=== PATIENT | female | born 1995 | race Caucasian/White ===

== ENCOUNTER 2018-01-31 00:21 | Observation (INO) ==
[2018-01-31] MEDS ORDERED: ASPIRIN 325 MG TABLET PO STA (00:47)
[2018-01-31] MEDS ORDERED: METOPROLOL TARTRATE 25 MG TABLET PO STA (00:47)
[2018-01-31] MEDS ORDERED: SODIUM CHLORIDE 0.9% 500 ML IV STA (00:47)
[2018-01-31 01:19] LABS: Basophils % 0.3 % (0.0-0.8); Eosinophils # 0.1 10*3/uL (0.0-0.87); Hematocrit 36.6 VOL% (35.7-47.0); Hemoglobin 12.4 GM/DL (12.0-16.0); Immature Granulocytes % 0.3 %; Immature Granulocytes Absolute 0.03 #; Lymphocytes % 33.7 % (21.3-54.2); Mean Corpuscular HGB Conc 33.9 GM/DL (32-36); Mean Corpuscular Hemoglobin 30 PG (27-34); Mean Corpuscular Volume 88.6 FL (87-102); Mean Platelet Volume 10.6 FL (9.6-12.0); Monocytes # 0.7 10*3/uL (0.11-0.8); Monocytes % 7.4 % (1.7-12.7); Neutrophils # 5.1 10*3/uL (1.4-7.4); Neutrophils % 57.3 % (38.7-73.9); Platelet Count 201 T/CUMM (130-400); Red Blood Count 4.13 MC/CUMM (3.8-5.5); Red Cell Distribution Width 11.9 % (9.3-17.3); White Blood Count 8.9 T/CUMM (4-12)
[2018-01-31 01:30] LABS: PT Patient Result 10.2 SECS
[2018-01-31] MEDS ORDERED: ONDANSETRON 4 MG/2 ML VIAL IV PRN (01:57)
[2018-01-31 01:59] LABS: Alanine Aminotransferase 22 U/L (13-56); Albumin 3.7 G/DL (3.4-5.0); Alkaline Phosphatase 57 U/L (45-117); Aspartate Amino Transferase 18 U/L (0-37); Blood Urea Nitrogen 7 MG/DL (7-18); Glucose 86 MG/DL (74-106); Osmolality,Calculated 271.7 MOS/KG (273-304); Potassium 3.4 MMOL/L (3.5-5.1); Sodium 138 MMOL/L (136-145); Total Protein 8.3 G/DL (6.4-8.3)
[2018-01-31] MEDS ORDERED: POTASSIUM CHLORIDE 20 MEQ TABLET PO STA (02:00)
[2018-01-31 02:03] LABS: Apearance,Urine CLEAR (Clear); Bacteria,Urine Occasional /HPF (Few); Bilirubin,Urine Negative (Negative); Blood, Urine Negative (Negative); Glucose,Urine (UA) Negative (Negative); Ketones,Urine Negative (Negative); Nitrite,Urine Positive (Negative); Protein,Urine Negative; RBC,Urine 1 /HPF (0-4); Squamous Epithelial Cell,Urine Occasional /HPF (0-10); Urine Color Straw (Yellow); Urine Specific Gravity 1.004 (1.001-1.035); Urine Urobilinogen < 2.0 EU/DL (0.2-1.0); WBC,Urine 6 /HPF (0-6)
[2018-01-31 02:18] LABS: Barbiturates Screen,Urine Negative (Negative); Benzodiazepines Screen,Urine Negative (Negative); Cannabinoid Screen,Urine Negative (Negative); Opiate Screen,Urine Negative (Negative); Phencyclidine Screen,Urine Negative (Negative)
[2018-01-31 07:29] LABS: Risk Ratio 2.05; VLDL CHOLESTEROL 15.4 MG/DL
[2018-01-31] MEDS ORDERED: [UNRECOGNIZED DRUG - OTHER] PO SCH (09:00)
[2018-01-31] MEDS ORDERED: SODIUM CHLORIDE 0.9% 1,000 ML IV ONE (15:00)
[2018-01-31] MEDS ORDERED: CIPROFLOXACIN 500 MG TABLET PO SCH (16:00)
[2018-01-31 16:22] VITALS: BP 121/74
== END 2018-01-31 17:45 | disposition home or self-care (01) ==
LOC: N.EDINP 00:21 → N.ED 00:21 → SUATTDRO 01:57 → N.2W 08:43 → N.TELES 14:58
PROVIDERS: ADMIT Internal Medicine; ATTEND Internal Medicine

== ENCOUNTER 2020-08-29 21:50 | Inpatient (IN) ==
[2020-08-29] MEDS ORDERED: LACTATED RINGERS 500 ML IV PRN (22:42)
[2020-08-29] MEDS ORDERED: LACTATED RINGERS 1,000 ML IV SCH (23:00)
[2020-08-29 23:03] LABS: Basophils % 0.2 % (0.0-0.8); Eosinophils # 0.1 10*3/uL (0.0-0.87); Eosinophils % 0.8 % (0.00-10.9); Hematocrit 32.3 VOL% (35.7-47.0); Hemoglobin 11.2 GM/DL (12.0-16.0); Immature Granulocytes % 1.7 %; Immature Granulocytes Absolute 0.21 #; Lymphocytes # 2.3 10*3/uL (1.4-4.0); Lymphocytes % 18.2 % (21.3-54.2); Mean Corpuscular HGB Conc 34.7 GM/DL (32-36); Mean Corpuscular Volume 89.2 FL (87-102); Mean Platelet Volume 10.7 FL (9.6-12.0); Monocytes % 7.5 % (1.7-12.7); Neutrophils % 71.6 % (38.7-73.9); Platelet Count 143 T/CUMM (130-400); Red Blood Count 3.62 MC/CUMM (3.8-5.5); Red Cell Distribution Width 13.2 % (9.3-17.3); White Blood Count 12.5 T/CUMM (4-12)
[2020-08-30] MEDS ORDERED: BUTORPHANOL 2 MG/ML VIAL IV PRN (08:11)
[2020-08-30] MEDS: MEPERIDINE 50 MG/1 ML VIAL IV PRN ×3 (08:31→21:18)
[2020-08-30] MEDS: ONDANSETRON 4 MG/2 ML VIAL IV PRN ×2 (08:38→21:18)
[2020-08-30] MEDS ORDERED: diphenhydrAMINE CAP 25 MG CAPSULE PO PRN (18:17)
[2020-08-31] MEDS ORDERED: OXYTOCIN/LR 20 UNIT/1,000 ML BAG IV SCH (04:00)
[2020-08-31] MEDS: ONDANSETRON 4 MG/2 ML VIAL IV PRN (05:21)
[2020-08-31] MEDS: MEPERIDINE 50 MG/1 ML VIAL IV PRN (05:21)
[2020-08-31] MEDS ORDERED: diphenhydrAMINE 50 MG/1 ML VIAL IV PRN ×2 (05:27)
[2020-08-31] MEDS ORDERED: PROMETHAZINE 25 MG/1 ML VIAL IM ONE (05:27)
[2020-08-31] MEDS ORDERED: ePHEDrine 50 MG/ML VIAL IV PRN (05:27)
[2020-08-31] MEDS ORDERED: hydrOXYzine HCL 25 MG/1 ML VIAL IM PRN (05:27)
[2020-08-31] MEDS ORDERED: ONDANSETRON 4 MG/2 ML VIAL IV ONE (05:27)
[2020-08-31] MEDS ORDERED: LACTATED RINGERS 250 ML IV PRN (05:27)
[2020-08-31] MEDS ORDERED: NALOXONE 0.4 MG/ML VIAL IV PRN (05:27)
[2020-08-31] MEDS ORDERED: CITRIC ACID/SODIUM CITRATE 30 ML UDCUP PO ONE (05:30)
[2020-08-31] MEDS ORDERED: LACTATED RINGERS 1,000 ML IV ONE (05:30)
[2020-08-31] MEDS ORDERED: LACTATED RINGERS 1,000 ML IV SCH (05:30)
[2020-08-31] MEDS ORDERED: FAMOTIDINE 20 MG/2 ML VIAL IV ONE (05:30)
[2020-08-31] MEDS: fentaNYL 2 MCG/ROPIV 0.2% EPID 100 ML EPIDURAL SCH ×2 (07:36→12:48)
[2020-08-31 09:57] LABS: Bacteria,Urine Occasional /HPF (Few); Bilirubin,Urine Negative (Negative); Blood, Urine Small mg/dL (Negative); Glucose,Urine (UA) Negative (Negative); Ketones,Urine Negative (Negative); Nitrite,Urine Negative (Negative); Protein,Urine Negative; RBC,Urine 4 /HPF (0-4); Squamous Epithelial Cell,Urine Occasional /HPF (0-10); Urine Appearance CLEAR (Clear); Urine Color Straw (Yellow); Urine Specific Gravity 1.003 (1.001-1.035); Urine Urobilinogen < 2.0 EU/DL (0.2-1.0); WBC,Urine <1 /HPF (0-6)
[2020-08-31] MEDS ORDERED: miSOPROStoL 200 MCG TABLET ONE (13:26)
[2020-08-31] MEDS ORDERED: TRANEXAMIC ACID 1,000 MG/10 ML VIAL ONE (13:26)
[2020-08-31] MEDS ORDERED: METHYLERGONOVINE 0.2 MG/1 ML AMP ONE (13:27)
[2020-08-31] MEDS ORDERED: CARBOPROST TROMETHAMINE 250 MCG/ML AMP IM ONE (13:27)
[2020-08-31] MEDS ORDERED: SODIUM CHLORIDE 0.9% 0 ML IV ONE (13:28)
[2020-08-31] MEDS ORDERED: CLINDAMYCIN INJ 900 MG in PREMIX 1 EACH IV ONE (16:01)
[2020-08-31] MEDS ORDERED: OXYTOCIN/LR 20 UNIT/1,000 ML BAG IV ONE ×2 (16:10→17:37)
[2020-08-31] MEDS ORDERED: LIDOCAINE MPF 2% /EPI 20 ML VIAL ONE ×3 (16:25→16:40)
[2020-08-31] MEDS ORDERED: ONDANSETRON 4 MG/2 ML VIAL ONE (16:41)
[2020-08-31] MEDS ORDERED: fentaNYL 100 MCG/2 ML VIAL ONE (17:00)
[2020-08-31] MEDS ORDERED: DEXAMETHASONE 4 MG/1 ML VIAL ONE (17:07)
[2020-08-31 17:14] LABS: Cord Venous Blood HCO3 20.4 MMOL/L; Cord Venous Blood PCO2 43.9 MMHG; Cord Venous Blood PO2 16.1
[2020-08-31] MEDS ORDERED: KETOROLAC 30 MG/1 ML VIAL ONE (17:20)
[2020-08-31] MEDS ORDERED: oxyCODONE/ACETAMINOPHEN 5-325 MG TABLET PO PRN (17:37)
[2020-08-31] MEDS ORDERED: HYDROCORTISONE 2.5% RECTAL CREAM 30 GM TUBE TOP PRN (17:37)
[2020-08-31] MEDS ORDERED: LANOLIN 50% CREAM 0.3 OZ TUBE TOP PRN (17:37)
[2020-08-31] MEDS ORDERED: DIPH/TET/ACEL PERT BOOSTER VACCINE 0.5 ML VIAL IM ONE (17:37)
[2020-08-31] MEDS ORDERED: MEASLES/MUMPS/RUBELLA VACCINE 0.5 ML VIAL SUBCUT ONE (17:37)
[2020-08-31] MEDS ORDERED: BISACODYL 10 MG SUPP RECTAL PRN (17:37)
[2020-08-31] MEDS ORDERED: WITCH HAZEL PADS 100/JAR TOP PRN (17:37)
[2020-08-31] MEDS ORDERED: RHO(D) IMMUNE GLOBULIN 300 MCG SYRINGE IM ONE (17:37)
[2020-08-31] MEDS ORDERED: ACETAMINOPHEN 325 MG TABLET PO PRN (17:37)
[2020-08-31] MEDS ORDERED: BENZOCAINE 20%/MENTHOL 0.5% SPRAY 56 GM CAN TOP PRN (17:37)
[2020-08-31] MEDS ORDERED: ONDANSETRON 4 MG/2 ML VIAL IV PRN (17:37)
[2020-08-31] MEDS ORDERED: SODIUM BICARBONATE 10 MEQ/10 ML SYRINGE IV ONE (17:49)
[2020-08-31] MEDS: IBUPROFEN 800 MG TABLET PO PRN (18:57)
[2020-08-31] MEDS: KETOROLAC 10 MG TABLET PO SCH (22:18)
[2020-09-01] MEDS: CLINDAMYCIN INJ 900 MG in PREMIX 1 EACH IV SCH ×2 (02:19→09:51)
[2020-09-01 06:03] LABS: Basophils % 0.1 % (0.0-0.8); Eosinophils % 0.1 % (0.00-10.9); Hematocrit 28.8 VOL% (35.7-47.0); Hemoglobin 9.9 GM/DL (12.0-16.0); Immature Granulocytes Absolute 0.16 #; Lymphocytes # 1.8 10*3/uL (1.4-4.0); Lymphocytes % 11.9 % (21.3-54.2); Mean Corpuscular HGB Conc 34.4 GM/DL (32-36); Mean Corpuscular Volume 90.3 FL (87-102); Mean Platelet Volume 10.7 FL (9.6-12.0); Monocytes % 5.5 % (1.7-12.7); Neutrophils % 81.4 % (38.7-73.9); Platelet Count 116 T/CUMM (130-400); Red Blood Count 3.19 MC/CUMM (3.8-5.5); Red Cell Distribution Width 13.2 % (9.3-17.3); White Blood Count 15.5 T/CUMM (4-12)
[2020-09-01] MEDS: KETOROLAC 10 MG TABLET PO SCH ×2 (06:15→14:51)
[2020-09-01] MEDS: DOCUSATE SODIUM 100 MG CAPSULE PO SCH ×3 (08:40→21:25)
[2020-09-01] MEDS: SIMETHICONE CHEW 80 MG TABLET PO PRN ×2 (08:40→20:04)
[2020-09-01] MEDS: MAGNESIUM HYDROXIDE SUSP 30 ML UDCUP PO PRN ×2 (08:41→20:05)
[2020-09-01] MEDS: POTASSIUM CHLORIDE 20 MEQ TABLET PO PRN ×3 (08:42→12:33)
[2020-09-01] MEDS: IBUPROFEN 800 MG TABLET PO PRN (08:49)
[2020-09-01] MEDS: oxyCODONE/ACETAMINOPHEN 5-325 MG TABLET PO PRN ×2 (08:49→21:14)
[2020-09-01] MEDS: KETOROLAC 30 MG/1 ML VIAL IV SCH (21:16)
[2020-09-02] MEDS: KETOROLAC 30 MG/1 ML VIAL IV SCH (04:01)
[2020-09-02] MEDS: POTASSIUM CHLORIDE 20 MEQ TABLET PO PRN ×2 (07:10→08:35)
[2020-09-02 07:36] VITALS: BP 142/79
[2020-09-02] MEDS: MAGNESIUM HYDROXIDE SUSP 30 ML UDCUP PO PRN (08:35)
[2020-09-02] MEDS: DOCUSATE SODIUM 100 MG CAPSULE PO SCH (08:35)
== END 2020-09-02 11:20 | disposition home or self-care (01) | DRG 788 ==
LOC: N.LDOUT 21:50 → N.LD 21:54 → N.OB 08-31 22:00
PROVIDERS: ADMIT Specialist; ATTEND Specialist
PROC: LDCSECT (ICD-10-PCS; 2020-08-31 16:30)